=== PATIENT | female | born 2000 | race Caucasian/White ===

== ENCOUNTER 2022-01-16 16:44 | Emergency (ER) | payer SELFPAY ==
[~2022-01-16] VITALS: Ht 162.6 cm; Wt 52.2 kg
--- NOTE | 2022-01-16 17:06 | NUR ---
Female plastic boat patcher accompanied female patient for ( Dr Espinoza ).
[2022-01-16] MEDS ORDERED: CLOT15CR5 TP (17:15)
[2022-01-16] MEDS ORDERED: predniSONE 20 MG TABLET PO ONE (17:15)
[2022-01-16] MEDS ORDERED: predniSONE 20 MG TABLET ONE (17:16)
--- NOTE | 2022-01-16 17:25 | NUR ---
Patient discharged to home in stable condition. Written and verbal after care instructions given. Patient verbalizes understanding of instructions. Stressed follow up or return to ER for worsening s/s.
[2022-01-16 17:57] VITALS: BP 121/81
== END 2022-01-16 17:25 | disposition home or self-care (01) ==
LOC: ER 16:52
DX: R21 Rash and other nonspecific skin eruption (principal); Z91.011 Allergy to milk products; Z91.013 Allergy to seafood; F31.9 Bipolar disorder, unspecified; J45.909 Unspecified asthma, uncomplicated
CPT/HCPCS: 99283; J7512; A4663